=== PATIENT | male | born 1975 | race Two or more races ===

== ENCOUNTER 2020-07-01 15:10 | Outpatient (REF) | payer OTHER, SELFPAY | END 2020-07-01 15:11 | disposition home or self-care (01) | LOC: HO.LAB 15:10 | PROVIDERS: Visit Provider Internal Medicine | DX: Z20.822 Contact with and (suspected) exposure to COVID-19 (principal) | CPT/HCPCS: 36415; C9803; U0003 ==

== ENCOUNTER 2020-08-14 08:43 | Outpatient (REF) | payer OTHER, SELFPAY ==
--- NOTE | ~2020-08-14 | XR_ITS ---
EXAMINATION: XR SHOULDER, RIGHT CLINICAL INFORMATION: Superior glenoid lesion COMPARISON: x-rays of the right shoulder April 2018. MRI of the right shoulder June 2018. TECHNIQUE: AP external rotation, Grashey, scapular Y, and axillary views of the right shoulder. FINDINGS: There are some subtle lucency in the glenoid likely correspond cystic change noted on the prior MRI. Possible slight joint space narrowing. Mild arthrosis of the acromioclavicular joint unchanged. Remaining bones joints and soft tissues unremarkable XR/XR shoulder RT min 2V IMPRESSION: Mild arthrosis of the glenohumeral joint unchanged compared with MRI right shoulder June 2018. Mild arthrosis of the acromioclavicular joint unchanged
[2020-08-14 09:38] LABS: Hematocrit 41.9 % (42-52); Hemoglobin 13.6 g/dl (14.0-18.0); Mean Corpuscular HGB Conc 32.5 g/dl (31.0-36.0); Mean Corpuscular Hemoglobin 29.4 pg (27.0-33.0); Mean Corpuscular Volume 90.5 fL (80-98); Mean Platelet Volume 10.5 fL (9.4-12.4); Platelet Count 201 X10*3/uL (160-400); Red Blood Count 4.63 X10*6/uL (4.60-5.80); Red Cell Distribution Width 13.6 % (11.0-16.0)
[2020-08-14 09:49] LABS: Estimated Average Glucose 103 mg/dL; Hemoglobin A1c % 5.2 %
[2020-08-14 10:04] LABS: Alanine Aminotransferase 63 U/L (0-40); Albumin Level 4.1 g/dL (3.5-5.0); Alkaline Phosphatase 69 U/L (39-117); Anion Gap 14 (12-20); Aspartate Amino Transferase 35 U/L (5-37); Bilirubin Total 0.3 mg/dL (0.0-1.0); Blood Urea Nitrogen 21 mg/dL (9-16); Calcium 9.4 mg/dL (8.4-10.2); Carbon Dioxide 29 mmol/L (22-29); Chloride 107 mmol/L (96-108); Cholesterol 193 mg/dL; Estimated Glomerular Filt Rate > 60; Glucose Fasting 101 mg/dL (60-99); HDL Cholesterol 46 mg/dL; LDL Cholesterol Calculated 96 mg/dl; Potassium 5.7 mmol/L (3.3-5.1); Sodium 144 mmol/L (135-145); Total Protein 7.2 g/dL (6.5-8.0); Triglycerides 259 mg/dL
[2020-08-14 10:26] LABS: TSH reflex Free T4 5.41 uIU/mL (0.32-4.0)
== END 2020-08-14 08:44 | disposition home or self-care (01) ==
LOC: HO.LAB 08:43
PROVIDERS: PCP Internal Medicine; Visit Provider Physician Assistant
DX: Z13.220 Encounter for screening for lipoid disorders (principal); Z13.1 Encounter for screening for diabetes mellitus; I10 Essential (primary) hypertension; F33.1 Major depressive disorder, recurrent, moderate; S43.431D Superior glenoid labrum lesion of right shoulder, subsequent encounter
CPT/HCPCS: 36415; 73030; 80053; 80061; 83036; 84439; 84443; 85027

== ENCOUNTER → 2020-09-07 14:08 | Outpatient (BNVA) | payer OTHER, SELFPAY | PROVIDERS: Visit Provider Orthopaedic Surgery | DX: S43.431D Superior glenoid labrum lesion of right shoulder, subsequent encounter (principal) | CPT/HCPCS: 20610; 99202; J1100 ==

== ENCOUNTER 2022-05-02 09:38 | Outpatient (REF) | payer OTHER, SELFPAY ==
[2022-05-02 10:57] LABS: Hematocrit 45.8 % (42.0-52.0); Hemoglobin 15.1 g/dl (14.0-18.0); Mean Corpuscular Hemoglobin 30.1 pg (27.0-33.0); Mean Corpuscular Volume 91.4 fL (80.0-98.0); Mean Platelet Volume 10.7 fL (9.4-12.4); Platelet Count 242 X10*3/uL (160-400); Red Blood Count 5.01 X10*6/uL (4.60-5.80); Red Cell Distribution Width 13.2 % (11.0-16.0); White Blood Count 7.8 X10*3/uL (4.8-10.8)
[2022-05-02 12:03] LABS: Alanine Aminotransferase 76 U/L (0-40); Albumin Level 4.6 g/dL (3.5-5.0); Alkaline Phosphatase 73 U/L (39-117); Anion Gap 16 (12-20); Aspartate Amino Transferase 45 U/L (5-37); Bilirubin Total 0.8 mg/dL (0.0-1.0); Blood Urea Nitrogen 13 mg/dL (9-16); Carbon Dioxide 27 mmol/L (22-29); Chloride 101 mmol/L (96-108); Cholesterol 224 mg/dL; Estimated Glomerular Filt Rate > 60; Glucose Fasting 101 mg/dL (60-99); HDL Cholesterol 49 mg/dL; LDL Cholesterol Calculated 151 mg/dl; Potassium 3.6 mmol/L (3.3-5.1); Sodium 140 mmol/L (135-145); Total Protein 8.1 g/dL (6.5-8.0); Triglycerides 123 mg/dL
[2022-05-02 12:11] LABS: Prostate Specific Antigen Scr 0.28 ng/mL (<0.05-4.0); TSH reflex Free T4 6.86 uIU/mL (0.32-4.0)
[2022-05-02 14:07] LABS: Free T4 (Free Thyroxine) 1.09 ng/dL (0.71-1.85)
== END 2022-05-02 09:39 | disposition home or self-care (01) ==
LOC: HO.LAB 09:38
PROVIDERS: PCP Physician Assistant; Visit Provider Physician Assistant
DX: J45.20 Mild intermittent asthma, uncomplicated (principal); R79.89 Other specified abnormal findings of blood chemistry; Z13.220 Encounter for screening for lipoid disorders; Z13.1 Encounter for screening for diabetes mellitus; Z12.5 Encounter for screening for malignant neoplasm of prostate
CPT/HCPCS: 36415; 80053; 80061; 84153; 84439; 84443; 85027

== ENCOUNTER 2022-12-14 06:36 | Outpatient (REF) | payer OTHER, SELFPAY ==
[2022-12-14 08:51] LABS: Hematocrit 41.6 % (42.0-52.0); Hemoglobin 13.2 g/dl (14.0-18.0); Mean Corpuscular HGB Conc 31.7 g/dl (31.0-36.0); Mean Corpuscular Hemoglobin 30.6 pg (27.0-33.0); Mean Corpuscular Volume 96.3 fL (80.0-98.0); Mean Platelet Volume 10.6 fL (9.4-12.4); Platelet Count 207 X10*3/uL (160-400); Red Blood Count 4.32 X10*6/uL (4.60-5.80); Red Cell Distribution Width 13.5 % (11.0-16.0); White Blood Count 7.7 X10*3/uL (4.8-10.8)
[2022-12-14 09:32] LABS: Alanine Aminotransferase 46 U/L (0-40); Albumin Level 4.1 g/dL (3.5-5.0); Alkaline Phosphatase 72 U/L (39-117); Anion Gap 16 (12-20); Aspartate Amino Transferase 43 U/L (5-37); Bilirubin Total 0.6 mg/dL (0.0-1.0); Blood Urea Nitrogen 18 mg/dL (9-16); Calcium 9.7 mg/dL (8.4-10.2); Carbon Dioxide 24 mmol/L (22-29); Chloride 104 mmol/L (96-108); Cholesterol 198 mg/dL; Estimated Glomerular Filt Rate > 60; Glucose Fasting 96 mg/dL (60-99); HDL Cholesterol 48 mg/dL; LDL Cholesterol Calculated 112 mg/dl; Potassium 5.7 mmol/L (3.3-5.1); Sodium 138 mmol/L (135-145); Total Protein 7.4 g/dL (6.5-8.0); Triglycerides 192 mg/dL
[2022-12-14 12:32] LABS: Creatinine Urine 218.45 mg/dL; Microalbum/Creatinine Ratio Ur 11.9 ug/mg cr
== END 2022-12-14 06:37 | disposition home or self-care (01) ==
LOC: HO.LAB 06:36
PROVIDERS: PCP Physician Assistant; Visit Provider Physician Assistant
DX: E03.9 Hypothyroidism, unspecified (principal); I10 Essential (primary) hypertension
CPT/HCPCS: 36415; 80053; 80061; 82043; 84443; 85027

== ENCOUNTER 2022-12-28 09:44 | Outpatient (REF) | payer OTHER, SELFPAY ==
[2022-12-28 11:16] LABS: Potassium 4.8 mmol/L (3.3-5.1)
== END 2022-12-28 09:45 | disposition home or self-care (01) ==
LOC: HO.LAB 09:44
PROVIDERS: PCP Physician Assistant; Visit Provider Physician Assistant
DX: E87.5 Hyperkalemia (principal)
CPT/HCPCS: 36415; 84132

== ENCOUNTER 2023-05-11 13:46 | Outpatient (AMB) | payer OTHER, SELFPAY ==
[2023-05-11 13:55] VITALS: BP 120/86; PULSE 72; O2SAT 98; BMI 26.9
--- NOTE | 2023-05-11 13:55 | MHC.PC.OV ---
Vital Signs 05/11/23 13:55 Height 5 ft 9 in Weight 182 lb BMI 26.9 BP 120/86 Blood Pressure Location Lt brachial Position Sitting Pulse 72 Pulse Source Pulse Oximeter Pulse Oximetry (%) 98 Oxygen Delivery Method Room Air Intake Visit Reasons: f/u HTN Intake Note: Pt is here for HTN F/U. Csr Retail Required: No Accompanied by: Self / Same As Patient Allergies No Known Allergies [No Known Allergies*] Allergy (Verified 05/11/23 14:13) Medication List - Last Reconciled 05/11/23 by Jeff Gudino PA-C albuterol sulfate 90 mcg/actuation (Ventolin HFA) 2 puffs PO Q6H 30 days clonidine HCl 0.1 mg PO BID diclofenac sodium 75 mg PO BID PRN 30 days hydroxyzine HCl 25 mg PO BID PRN 14 days levothyroxine 25 mcg PO DAILY 90 days lisinopril 20 mg PO DAILY 90 days sertraline 50 mg PO DAILY Tobacco use date assessed: 11/01/22 Dental Screening Dental Screen Date: 05/11/23 Did you have a dental visit in the last 12 months?: Yes Did you have a dental problem in the last 6 months where you did not have access to dental care?: No Was dental information given to patient?: Patient has dentist HPI f/u HTN HPI Details Patient is a 47-year-old male here today for routine annual physical. ? Patient has a past medical history significant for opiate dependence, major depressive disorder, right shoulder tendinitis, allergic rhinitis and asthma. Concern--> .. HTN: blood pressure acceptable today.. Patient continues on lisinopril 20 mg with good effect on his blood pressure. .. Hypothyroid: Was found to have elevated TSH early this year. Was placed on levothyroxine and TSH has normalized. Over the last few months he has not been taking levothyroxine and feels fine. Will recheck TSH to assess the need for further levothyroxine He has lost significant amount of weight since last office visit. He reports this is intentional as he has been more physically active and going to the gym. Has been changing his diet and now feels much better. .. .. Opiate dependence: Currently on methadone (80 mg). Still occasional using street fentanyl though is trying his best to stay away from street drugs. . MDD/ PTSD : Has recently started on Zoloft and clonidine? for his anxiety and depression. He is speaking with a mental health therapist and seeing a psychiatrist to manage his mental health medication. He is trying to apply for SSI disability due to his mental health. [facility], [facility] Medical History PTSD (post-traumatic stress disorder) Surgical History No history of previous surgery Family History Mother No problems noted. Father AA (alcohol abuse) Other Substance use disorder Social History Housing: Homeless Alcohol intake: never Patient Tobacco Use Status: Former Tobacco user (quit seven years ago) e-Cigarette/Vaping Use: Never Used Second Hand Smoke Exposure: No Substance Use Type: Heroin service: No Current occupational status: unemployed Cognitive needs: No Hearing needs: No Vision needs: No Questionnaire Thrive Questionnaire Date Thrive assessed: 11/01/22 ARRON-7 AMB Questionnaire ARRON-7 Date ARRON - 7 assessed: 11/01/22 Source: Developed by Drs. Jorge Pedraza, Jina Henderson, Ryan Gonzalez and colleagues, with an educational maxim from [employer] [place]. Review of Systems Const Denies headache(s) Eyes Denies loss of vision ENT Denies vertigo, Denies dizziness, Denies headache(s) and Denies sore throat Card Denies chest pain, Denies leg edema and Denies lightheadedness Resp Denies cough, Denies hemoptysis and Denies wheezing GI Denies abdominal pain, Denies melena, Denies constipation, Denies diarrhea and Denies vomiting Denies dysuria, Denies urinary frequency and Denies urinary urgency Musc Denies arthralgias, Denies joint swelling, Denies numbness and Denies tingling Neuro Denies Abnormal speech present, Denies behavioral changes, Denies vertigo, Denies dizziness, Denies headache(s), Denies loss of vision, Denies memory loss, Denies numbness and Denies tingling Psych Denies anxiety, Denies behavioral changes, Denies depression, Denies memory loss and Denies panic attacks Toñito/Lymph Denies easy bleeding and Denies easy bruising Aller/Immun Denies wheezing Physical exam (Primary Care) Vital Signs: Last Vital Signs Pulse 72 05/11/23 13:55 BP 120/86 05/11/23 13:55 Pulse Ox 98 05/11/23 13:55 Oxygen Delivery Method Room Air 05/11/23 13:55 BMI result Body Mass Index 26.9 Tobacco/Smoking Status: Tobacco use Status Tobacco use date assessed 11/01/22 05/11/23 13:57 Patient Tobacco Use Status Former Tobacco user (quit 05/11/23 13:57 seven years ago) e-Cigarette/Vaping Use Never Used 05/11/23 13:57 Thrive Assessment: Date of Thrive Assessment Date Thrive assessed 11/01/22 05/11/23 13:57 Const General: healthy appearing, no acute distress, alert and awake Nutritional Appearance: well nourished Orientation/consciousness: oriented to person, oriented to place and oriented to time HENMT Ears: TM's normal bilaterally General nose exam: Normal nasal mucous membranes and turbinates present Eyes Conjunctivae: conjunctivae normal Sclerae: sclerae normal Pupils: Equal, round and reactive pupils present Neck Neck: Yes no lymphadenopathy and Yes no JVD Thyroid: Thyroid normal Carotids: no bruits Resp Effort & Inspection: normal respiratory effort and not tachypneic Auscultation: no crackles, no rales, no rhonchi and no wheezes Cardio Rate: regular rate Rhythm: regular rhythm Heart sounds: no murmurs and normal S1 and S2 GI Palpation (GI): Soft to palpation, nontender, no hepatomegaly and no splenomegaly Auscultation: normal bowel sounds Skin General skin exam: no rashes or lesions noted and dry skin Neuro General: oriented to person, oriented to place and oriented to time Cranial nerves: Yes Equal, round and reactive pupils present Speech: No Abnormal speech present Gait exam (Neuro): Normal gait present Motor exam (neuro): no tremor noted Extrem Right upper extremity: full ROM Left upper extremity: full ROM Right lower extremity: full ROM; no edema Left lower extremity: full ROM; no edema Psych Mental Status: mental status grossly normal Speech and movement: Normal speech and movement present Affect: normal affect Attitude: cooperative Thought process: Normal thought process present Office Procedures Flu Questionnaire Does the patient have a severe egg allergy?: No Does the patient have severe life threatening allergies?: No Does the patient have a fever or illness today?: No Has the patient ever had Guillain-[place] Syndrome?: No Has the patient ever had any past reaction to a flu shot?: No Immunizations flu vacc [id number] 6mos up(PF) 60 mcg(15 mcgx4)/0.5 mL IM syringe Performing Provider: Jeff Gudino PA-C [facility] Administered by: MAYA Schrader on 05/11/23 14:34 Dose Route Admin Location Dispensed Lot Number Expiration Date 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 Will continue lisinopril 20 mg and advised patient to continue monitoring blood pressure at home with goal blood pressure to be below 140/90 (2) Opiate dependence: Code(s): F11.20 - Opioid dependence, uncomplicated Qualifiers: Substance use status: uncomplicated Qualified Code(s): F11.20 - Opioid dependence, uncomplicated Plan: Patient continues on methadone through a local methadone clinic, continues on 80 mg. He does admit to still using occasional fentanyl. (3) MDD (major depressive disorder), recurrent episode: Code(s): F33.9 - Major depressive disorder, recurrent, unspecified Qualifiers: Major depression episode severity: moderate Qualified Code(s): F33.1 - Major depressive disorder, recurrent, moderate Plan: He is now speaking with a mental health therapist. Continues on Zoloft and clonidine. He feels his mental health as much better. (4) Asthma: Code(s): J45.909 - Unspecified asthma, uncomplicated Qualifiers: Asthma complication type: uncomplicated Asthma persistence: intermittent Asthma severity: mild Qualified Code(s): J45.20 - Mild intermittent asthma, uncomplicated Plan: Patient reports his asthma has been fairly well controlled with only p.r.n. use of albuterol inhaler. He denies any nighttime awakenings with asthma symptoms or recent asthma exacerbations. (5) Hypothyroid: Code(s): E03.9 - Hypothyroidism, unspecified Qualifiers: Hypothyroidism type: unspecified Qualified Code(s): E03.9 - Hypothyroidism, unspecified Plan: Was found to have an elevated TSH and was started on low-dose levothyroxine 25 mcg. Has stopped using this medication and most recent TSH has been stable. Will recheck TSH to assure normal not on medication if elevated will reconsider starting levothyroxine. (6) Superior glenoid labrum lesion of right shoulder: Code(s): S43.431A - Superior glenoid labrum lesion of right shoulder, initial encounter Qualifiers: Encounter type: subsequent encounter Qualified Code(s): S43.431D - Superior glenoid labrum lesion of right shoulder, subsequent encounter Plan: Has follow-up with orthopedics and received cortisone injections which has really helped his right shoulder pain. He does use diclofenac as well. (7) PTSD (post-traumatic stress disorder): Code(s): F43.10 - Post-traumatic stress disorder, unspecified Plan: Continues to follow a mental health therapist and a psychiatrist. Continues on clonidine, hydroxyzine and Zoloft which have been helpful in controlling his mental health. Still does have anxiety he deals with on a daily basis. Orders: Orders Prostate Specific Antigen Scr Today I10 - Essential (primary) hypertension, Z12.5 - Encounter for screening for malignant neoplasm of prostate Complete Blood Count no Diff Today I10 - Essential (primary) hypertension Microalbumin, Random (w Creat) Today I10 - Essential (primary) hypertension Influenza [id number] Immunization Today Z23 - Encounter for immunization TSH reflex Free T4 Today E03.9 - Hypothyroidism, unspecified Comprehensive [place]. Panel Fast Today I10 - Essential (primary) hypertension Medications: Changed From hydroxyzine HCl 25 mg PO BID 14 days PRN 28 tabs 0RF anxiety F43.10 - Post-traumatic stress disorder, unspecified To hydroxyzine HCl 25 mg PO BID 30 days PRN 60 tabs 2RF anxiety F43.10 - Post-traumatic stress disorder, unspecified Refilled lisinopril 20 mg PO DAILY 90 days 90 tabs 1RF I10 - Essential (primary) hypertension On Hold levothyroxine Hold Comment: Doctor's Order 25 mcg PO DAILY 90 days 90 tabs 1RF E03.9 - Hypothyroidism, unspecified Coding Level of Care Code Est Pt Level 4 (68543) Diagnoses Primary hypertension I10 Hypertension type: primary hypertension Uncomplicated opioid dependence F11.20 Substance use status: uncomplicated Moderate episode of recurrent major depressive disorder F33.1 Major depression episode severity: moderate Mild intermittent asthma without complication J45.20 Asthma complication type: uncomplicated Asthma persistence: intermittent Asthma severity: mild Hypothyroidism, unspecified type E03.9 Hypothyroidism type: unspecified Superior glenoid labrum lesion of right shoulder, subsequent encounter S43.431D Encounter type: subsequent encounter PTSD (post-traumatic stress disorder) F43.10
== END 2023-05-11 14:31 | disposition home or self-care (01) ==
PROVIDERS: PCP Physician Assistant; Visit Provider Physician Assistant
DX: I10 Essential (primary) hypertension (principal); F11.20 Opioid dependence, uncomplicated; F33.1 Major depressive disorder, recurrent, moderate; J45.20 Mild intermittent asthma, uncomplicated; E03.9 Hypothyroidism, unspecified; S43.431D Superior glenoid labrum lesion of right shoulder, subsequent encounter; F43.10 Post-traumatic stress disorder, unspecified; Z23 Encounter for immunization
CPT/HCPCS: 90471; 90686; 99214

== ENCOUNTER 2023-09-05 07:30 | Outpatient (REF) | payer OTHER, SELFPAY ==
[2023-09-05 07:56] LABS: Hemoglobin 14.5 g/dl (14.0-18.0); Mean Corpuscular Hemoglobin 30.1 pg (27.0-33.0); Mean Corpuscular Volume 91.5 fL (80.0-98.0); Mean Platelet Volume 10.2 fL (9.4-12.4); Platelet Count 176 X10*3/uL (160-400); Red Blood Count 4.81 X10*6/uL (4.60-5.80); Red Cell Distribution Width 12.9 % (11.0-16.0); White Blood Count 7.1 X10*3/uL (4.8-10.8)
[2023-09-05 08:35] LABS: Alanine Aminotransferase 38 U/L (0-40); Alkaline Phosphatase 60 U/L (39-117); Anion Gap 12 (12-20); Aspartate Amino Transferase 28 U/L (5-37); Bilirubin Total 0.4 mg/dL (0.0-1.0); Blood Urea Nitrogen 19 mg/dL (9-16); Calcium 10.2 mg/dL (8.4-10.2); Carbon Dioxide 29 mmol/L (22-29); Chloride 105 mmol/L (96-108); Estimated Glomerular Filt Rate > 60; Glucose Fasting 109 mg/dL (60-99); Potassium 5.1 mmol/L (3.3-5.1); Sodium 141 mmol/L (135-145); Total Protein 7.6 g/dL (6.5-8.0)
[2023-09-05 08:41] LABS: Prostate Specific Antigen Scr 0.25 ng/mL (<0.05-4.0)
[2023-09-05 08:50] LABS: TSH reflex Free T4 5.27 uIU/mL (0.32-4.0)
[2023-09-05 09:32] LABS: Free T4 (Free Thyroxine) 0.93 ng/dL (0.71-1.85)
[2023-09-05 10:01] LABS: Creatinine Urine 124.34 mg/dL; Microalbum/Creatinine Ratio Ur 5.6 ug/mg cr (<30)
== END 2023-09-05 07:31 | disposition home or self-care (01) ==
LOC: HO.LAB 07:30
PROVIDERS: PCP Physician Assistant; Visit Provider Physician Assistant
DX: I10 Essential (primary) hypertension (principal); E03.9 Hypothyroidism, unspecified; Z12.5 Encounter for screening for malignant neoplasm of prostate
CPT/HCPCS: 36415; 80053; 82043; 82570; 84153; 84439; 84443; 85027

== ENCOUNTER 2024-01-23 14:33 | Outpatient (AMB) | payer OTHER, SELFPAY ==
--- NOTE | 2024-01-23 14:39 | MHC.PC.OV ---
Vital Signs 01/23/24 14:49 Height 5 ft 9 in Weight 211 lb 8 oz BMI 31.2 BP 124/92 H Blood Pressure Location Lt brachial Position Sitting Pulse 63 Pulse Source Pulse Oximeter Pulse Oximetry (%) 98 Oxygen Delivery Method Room Air Intake Visit Reasons: PE Intake Note: Patient is here today for a physical. Clinic Mgr Required: No Accompanied by: Self / Same As Patient Allergies No Known Allergies [No Known Allergies*] Allergy (Verified 01/23/24 15:06) Medication List - Last Reconciled 01/23/24 by Jeff Gudino PA-C albuterol sulfate 90 mcg/actuation (Ventolin HFA) 2 puffs PO Q6H 30 days clonidine HCl 0.2 mg PO DAILY clonidine HCl 0.1 mg PO BID diclofenac sodium 75 mg PO BID PRN 30 days hydroxyzine HCl 25 mg PO BID PRN 30 days levothyroxine 25 mcg PO DAILY 90 days lisinopril 20 mg PO DAILY 90 days naloxone 4 mg/actuation sprays intranasal risperidone 0.5 mg PO DAILY sertraline 100 mg PO DAILY Tobacco use date assessed: 01/23/24 Dental Screening Dental Screen Date: 01/23/24 Did you have a dental visit in the last 12 months?: No Did you have a dental problem in the last 6 months where you did not have access to dental care?: Yes Was dental information given to patient?: Patient has dentist HPI PE HPI Details Patient is a 48-year-old male here today for routine annual physical. ? Patient has a past medical history significant for opiate dependence, major depressive disorder, right shoulder tendinitis, allergic rhinitis and asthma. Concern--> does noted weight gain since last office visit. He reports he has been a bit depressed and more sedentary. He admits to dietary indiscretion .. HTN: blood pressure acceptable today.. Patient continues on lisinopril 20 mg with good effect on his blood pressure. .. Hypothyroid: Was found to have elevated TSH early this year. Was placed on levothyroxine and TSH has normalized. Over the last few months he has not been taking levothyroxine and feels fine. Will recheck TSH to assess the need for further levothyroxine .. .. Opiate dependence: Currently on methadone (80 mg). Still occasional using street fentanyl though is trying his best to stay away from street drugs. . MDD/ PTSD : Has recently started on Zoloft and clonidine? for his anxiety and depression. He is speaking with a mental health therapist and seeing a psychiatrist to manage his mental health medication. He is trying to apply for SSI disability due to his mental health. Colon cancer screening: He is willing to do colonoscopy Vaccines: Up-to-date with tetanus vaccine, flu vaccine, declines COVID vaccine, needs to pneumonia vaccine [facility] Medical History PTSD (post-traumatic stress disorder) Surgical History No history of previous surgery Family History Mother No problems noted. Father AA (alcohol abuse) Other Substance use disorder Social History Housing: Homeless Alcohol intake: never Patient Tobacco Use Status: Former Tobacco user (quit seven years ago) e-Cigarette/Vaping Use: Never Used Second Hand Smoke Exposure: No Substance Use Type: Heroin service: No Current occupational status: unemployed Cognitive needs: No Hearing needs: No Vision needs: No Questionnaire PHQ-9 Over the last 2 weeks, how often have you been bothered by any of the following problems? 1. Little interest or pleasure in doing things: not at all 2. Feeling down, depressed, or hopeless: not at all 3. Trouble falling or staying asleep, or sleeping too much: not at all 4. Feeling tired or having little energy: not at all 5. Poor appetite or overeating: not at all 6. Feeling bad about yourself - or that you are a failure or have let yourself or your family down: not at all 7. Trouble concentrating on things, such as reading the newspaper or watching television: not at all 8. Moving or speaking so slowly that other people could have noticed. Or the opposite - being so fidgety or restless that you have been moving around a lot more than usual: not at all 9. Thoughts that you would be better off or of hurting yourself in some way: not at all Total score: 0 Depression Screening Interpretation: Negative Depression Screening Done: Yes 84141 - PHQ-9 Billing: Yes Source: Developed by Drs. Jorge Pedraza, Ryan iLnares and colleagues, with an educational maxim from [employer]. Thrive Questionnaire Date Thrive assessed: 01/23/24 I am a: Patient What is your living situation today?: I have a steady place to live Within the past 12 months, did the food you bought not last and you didn't have the money to get more?: Never true Within the past 12 months, did you worry whether your food would run out before you got money to buy more?: Never true Do you have trouble paying for medicines?: No Do you have trouble getting transportation to medical appointments?: No Do you have trouble paying your heating and electricity bill?: No Do you have trouble taking care of your child, family member or friend?: No Do you have trouble with day-to-day activities such as bathing, preparing meals, shopping, managing finances, etc.?: No Are you currently unemployed and looking for a job?: No Are you interested in more education?: No Please select the resources that you would like help with: None Currently or been in a relationship where the following occur: No concerns reported THRIVE Score: 0 AUDIT C Alcohol Use Questionnaire (AUDIT-C) 1. How often do you have a drink containing alcohol?: Never 3. How often do you have six or more drinks on one occasion?: Never Total Score: 0 ARRON-7 AMB Questionnaire ARRON-7 Date ARRON - 7 assessed: 01/23/24 Feeling nervous, anxious, or on edge: 0 = Not at all Not being able to stop or control worryin = Not at all Worrying too much about different things: 0 = Not at all Trouble relaxin = Not at all Being so restless that it is hard to sit still: 0 = Not at all Becoming easily annoyed or irritable: 0 = Not at all Feeling afraid as if something awful might happen: 0 = Not at all Total ARRON-7 score (0-4 normal; 5-9 mild; 10-14 moderate; 15-21 severe): 0 Source: Developed by Jina Gomez Kurt Kroenke and colleagues, with an educational maxim from [employer]. ARRON-7 Assessment Billing ARRON-7 Assessment Tool: ARRON-7 Assessment 60921 ACT Questionnaire In the past 4 weeks, how much of the time did your asthma keep you from getting as much done at work, school or at home?: None of the time During the past 4 weeks, how often have you had shortness of breath?: Not at all During the past 4 weeks, how often did your asthma symptoms wake you up at night or earlier than usual in the morning?: Not at all During the past 4 weeks, how often have you had to use your rescue inhaler or nebulizer medication?: Not at all How would you rate your asthma control during the past 4 weeks?: Completely controlled ACT Interpretation: Negative Score: 25 Review of Systems Const Denies body aches, Denies chills, Denies excessive sweating, Denies fatigue, Denies fever(s) and Denies headache(s) Eyes Denies blurry vision ENT Denies dysphagia, Denies vertigo, Denies dizziness, Denies headache(s), Denies hearing loss and Denies tinnitus Card Denies chest pain, Denies chest pain with activity, Denies syncope, Denies irregular heart rhythm and Denies dyspnea Resp Denies chest congestion, Denies cough, Denies hemoptysis, Denies dyspnea and Denies wheezing GI Denies abdominal pain, Denies melena, Denies hematochezia, Denies coffee ground emesis, Denies dysphagia, Denies diarrhea, Denies nausea and Denies vomiting Denies difficulty urinating, Denies dysuria, Denies urinary frequency, Denies urinary hesitancy and Denies urinary urgency Musc Denies arthralgias, Denies limited range of motion, Denies muscle cramps and Denies muscle weakness Skin/Breast Denies rash and Denies skin ulcer Neuro Denies Abnormal speech present, Denies confusion, Denies vertigo, Denies dizziness, Denies syncope, Denies headache(s), Denies memory loss and Denies seizure-like activity Psych Denies anxiety, Denies confusion, Denies depression, Denies memory loss, Denies panic attacks and Denies paranoia Endo Denies excessive sweating, Denies fatigue, Denies flushing, Denies polydipsia and Denies polyuria Aller/Immun Denies wheezing Physical exam (Primary Care) Vital Signs: Last Vital Signs Pulse 63 08/20/24 14:49 BP 124/92 H 01/23/24 14:49 Pulse Ox 98 01/23/24 14:49 Oxygen Delivery Method Room Air 01/23/24 14:49 BMI result Body Mass Index 31.2 Tobacco/Smoking Status: Tobacco use Status Tobacco use date assessed 01/23/24 01/23/24 14:56 Patient Tobacco Use Status Former Tobacco user (quit 01/23/24 14:40 seven years ago) e-Cigarette/Vaping Use Never Used 01/23/24 14:40 PHQ-9: PHQ-9 Score PHQ-9: Total score 0 01/23/24 15:26 Depression Screening Interpretation: Negative Thrive Assessment: Date of Thrive Assessment Date Thrive assessed 01/23/24 01/23/24 14:57 Currently or been in a relationship where the following occur: No concerns reported Const General: cooperative, comfortable, no acute distress, alert and awake; No confusion Orientation/consciousness: oriented to person, oriented to place, patient oriented x3 and No confusion HENMT Head: Yes normocephalic Ears: external ears normal and TM's normal bilaterally Face and sinus: No sinus tenderness Mouth: Normal oral and palatal mucosa present and tongue normal Teeth and gingiva: dentition normal and gingiva normal Throat: Yes posterior oropharynx normal, Yes tonsils normal and Yes uvula midline Eyes Conjunctivae: conjunctivae normal Sclerae: sclerae normal Pupils: Equal, round and reactive pupils present EOM: EOMs intact bilaterally Direct Ophthalmoscopy: No no photophobia Neck Neck: Yes no lymphadenopathy, No tender and Yes no JVD Thyroid: Thyroid normal Carotids: no bruits Chest Chest palpation & inspection: no tenderness Resp Effort & Inspection: normal respiratory effort, no audible wheezes, not labored and no stridor Auscultation: no crackles, no rales, no rhonchi and no wheezes Cardio Jugular venous distension: no JVD Rate: regular rate, not bradycardic and not tachycardic Rhythm: regular rhythm Bruits: no carotid bruits Peripheral pulses: Peripheral pulses 2+ throughout GI Inspection: Yes normal to inspection, No abdominal wall ecchymosis and No visible herniation Palpation (GI): Soft to palpation, nontender, no guarding, not rigid and No hepatosplenomegaly present Auscultation: normoactive bowel sounds General: Yes no CVA tenderness Back/Spine/Pelvis Back: no CVA tenderness and No back tenderness Cervical Spine: cervical ROM normal Thoracic/Lumbar Spine: thoracic and lumbar spine normal to inspection, straight leg raise negative bilaterally, No thoraco-lumbar ROM limited and No lumbar spinal tenderness Skin Lesions: no lesions Rashes: no rashes Wounds: no wounds Neuro General: oriented to person, oriented to place, patient oriented x3, CN's II-XI intact bilaterally and No confusion Cranial nerves: Yes Equal, round and reactive pupils present and Yes Normal accommodation reflex present Cognition (Neuro): normal cognition Speech: No Abnormal speech present Gait exam (Neuro): Normal gait present Motor exam (neuro): 5/5 motor strength present throughout Extrem Right upper extremity: full ROM; no cyanosis Left upper extremity: full ROM; no cyanosis Right lower extremity: no edema Left lower extremity: no edema Psych Appearance: grossly normal Mental Status: mental status grossly normal Affect: normal affect Attitude: cooperative Thought process: Normal thought process present Immunizations pneumoc 20-cecilia conj-dip cr(PF) 0.5 mL IM syringe Performing Provider: Jeff Gudino PA-C Performing Location: [facility] Administered by: MAYA Schrader on 01/23/24 15:27 Dose Route Admin Location Dispensed Lot Number Expiration Date NDC Pharmacoepidemiologist 0.5 mL IM Left Deltoid 0.5 mL [id number] 11/03/24 2318-6805-36 [employer] VIS Given Date VIS Provided VIS Publication Date 01/23/24 Single Vaccine 21 Eligibility Eligibility Date Funding Source Not [facility] Eligible 01/23/24 Private Assessment and Plan Assessment & Plan (1) Annual physical exam: Code(s): Z00.00 - Encounter for general adult medical examination without abnormal findings (2) HTN (hypertension): Code(s): I10 - Essential (primary) hypertension Qualifiers: Hypertension type: primary hypertension Qualified Code(s): I10 - Essential (primary) hypertension Plan: Patient's blood pressure much better controlled with lisinopril 20 mg. Will continue lisinopril 20 mg and advised patient to continue monitoring blood pressure at home with goal blood pressure to be below 140/90 (3) Opiate dependence: Code(s): F11.20 - Opioid dependence, uncomplicated Qualifiers: Substance use status: uncomplicated Qualified Code(s): F11.20 - Opioid dependence, uncomplicated Plan: Patient continues on methadone through a local methadone clinic, continues on 80 mg. He does admit to still using occasional fentanyl. (4) MDD (major depressive disorder), recurrent episode: Code(s): F33.9 - Major depressive disorder, recurrent, unspecified Qualifiers: Major depression episode severity: moderate Qualified Code(s): F33.1 - Major depressive disorder, recurrent, moderate Plan: Has a counselor at the methadone clinic. Does report still suffering with depression which causes him to be sedentary thus has gained weight. Continues on Zoloft and clonidine. He feels his mental health as much better. (5) Asthma: Code(s): J45.909 - Unspecified asthma, uncomplicated Qualifiers: Asthma complication type: uncomplicated Asthma persistence: intermittent Asthma severity: mild Qualified Code(s): J45.20 - Mild intermittent asthma, uncomplicated Plan: Patient reports his asthma has been fairly well controlled with only p.r.n. use of albuterol inhaler. He denies any nighttime awakenings with asthma symptoms or recent asthma exacerbations. Will give patient pneumonia vaccine (6) Hypothyroid: Code(s): E03.9 - Hypothyroidism, unspecified Qualifiers: Hypothyroidism type: unspecified Qualified Code(s): E03.9 - Hypothyroidism, unspecified Plan: Has not been taking levothyroxine. Has noted significant weight gain since last office visit. Also reports some increased depression over the last few months.. Advised to restart levothyroxine 25 mcg on an empty stomach in the morning. (7) PTSD (post-traumatic stress disorder): Code(s): F43.10 - Post-traumatic stress disorder, unspecified Plan: Continues on clonidine, hydroxyzine and Zoloft which have been helpful in controlling his mental health. Still does have anxiety he deals with on a daily basis. (8) Impaired glucose metabolism: Code(s): R73.09 - Other abnormal glucose Plan: Most recent fasting blood sugar slightly elevated. He does report some dietary indiscretion as of late due to his depression.. Will check an A1c (9) Colon cancer screening: Code(s): Z12.11 - Encounter for screening for malignant neoplasm of colon Plan: Is considering a colonoscopy, declines Cologuard at this time Orders: Orders Comprehensive [place]. Panel Fast 01/23/24 Z13.1 - Encounter for screening for diabetes mellitus Hemoglobin A1c 01/23/24 R73.09 - Other abnormal glucose Prostate Specific Antigen Scr 01/23/24 I10 - Essential (primary) hypertension, Z12.5 - Encounter for screening for malignant neoplasm of prostate Microalbumin, Random (w Creat) 01/23/24 I10 - Essential (primary) hypertension Pneumococcal 20 Immunization 01/23/24 I10 - Essential (primary) hypertension, Z23 - Encounter for immunization Medications: Refilled albuterol sulfate 90 mcg/actuation (Ventolin HFA) 2 puffs PO Q6H 8.5 grams 3RF 30 days J45.20 - Mild intermittent asthma, uncomplicated hydroxyzine HCl 25 mg PO BID PRN 60 tabs 2RF anxiety 30 days F43.10 - Post-traumatic stress disorder, unspecified lisinopril 20 mg PO DAILY 90 tabs 1RF 90 days I10 - Essential (primary) hypertension Resumed levothyroxine 25 mcg PO DAILY 90 tabs 1RF 90 days E03.9 - Hypothyroidism, unspecified levothyroxine 25 mcg PO DAILY 90 days 90 tabs 1RF E03.9 - Hypothyroidism, unspecified Patient Instructions: Goal: Blood pressure to be below 140/90. Barriers: Adherence to physical activity and healthy eating habits Coding Level of Care Code Est Pt Prev Care 40-64y(11086) Diagnoses Annual physical exam Z00.00 Primary hypertension I10 Hypertension type: primary hypertension Uncomplicated opioid dependence F11.20 Substance use status: uncomplicated Moderate episode of recurrent major depressive disorder F33.1 Major depression episode severity: moderate Mild intermittent asthma without complication J45.20 Asthma complication type: uncomplicated Asthma persistence: intermittent Asthma severity: mild Hypothyroidism, unspecified type E03.9 Hypothyroidism type: unspecified PTSD (post-traumatic stress disorder) F43.10 Impaired glucose metabolism R73.09 Colon cancer screening Z12.11 Additional Codes ARRON-7 Assessment Billing - ARRON-7 Assessment Tool: ARRON-7 Assessment 35565 ([id number])
[2024-01-23 14:49] VITALS: BP 124/92; PULSE 63; O2SAT 98; BMI 31.2
== END 2024-01-23 15:29 | disposition home or self-care (01) ==
PROVIDERS: PCP Physician Assistant; Visit Provider Physician Assistant
DX: Z23 Encounter for immunization (principal)
CPT/HCPCS: 90471; 90677; 99396

== ENCOUNTER 2024-05-15 13:09 | Outpatient (AMB) | payer OTHER, SELFPAY ==
--- NOTE | 2024-05-15 13:19 | AM.OFFVISNUR ---
Intake Visit Reasons: TB Implant Allergies No Known Allergies [No Known Allergies*] Allergy (Verified 01/23/24 15:06) Office Meds tuberculin PPD 5 tub. unit/0.1 mL intradermal injection solution Performing Provider: Jeff Gudino PA-C Performing Location: [facility] [place] Administered by: Elo Rosenberg LPN on 05/15/24 13:19 Dose Route Admin Location Dispensed Lot Number Expiration Date [facility] [employer] L[employer] 0.1 mL intradermal left forearm 0.1 mL [id number] 11/02/26 22446-560-50 [employer] Assessment & Plan Assessment & Plan Orders: Orders AMB PPD Planted Today Z11.1 - Encounter for screening for respiratory tuberculosis Medications: New tuberculin PPD 0.1 mL intradermal ONCE 0.1 mL 0RF Z11.1 - Encounter for screening for respiratory tuberculosis
== END 2024-05-15 13:21 | disposition home or self-care (01) ==
PROVIDERS: PCP Physician Assistant; Visit Provider Physician Assistant
DX: Z11.1 Encounter for screening for respiratory tuberculosis (principal)

== ENCOUNTER → 2024-05-15 13:09 | Outpatient (BNVA) | payer OTHER, SELFPAY | PROVIDERS: PCP Physician Assistant; Visit Provider Physician Assistant | DX: Z11.1 Encounter for screening for respiratory tuberculosis (principal) | CPT/HCPCS: 86580 ==

== ENCOUNTER → 2024-05-17 13:37 | Outpatient (BNVA) | payer OTHER, SELFPAY | PROVIDERS: PCP Physician Assistant; Visit Provider Physician Assistant ==

== ENCOUNTER 2025-05-07 12:05 | Outpatient (AMB) | payer OTHER, SELFPAY ==
--- NOTE | 2025-05-07 12:08 | MHC.OFFWIV ---
Intake Vital Signs 05/07/25 12:13 Height 5 ft 9.5 in Weight 240 lb BMI 34.9 BP 172/79 H Blood Pressure Location Lt brachial Position Sitting Pulse 86 Pulse Source Pulse Oximeter Temp 98 F Temp Source Oral Pulse Oximetry (%) 96 Oxygen Delivery Method Room Air Intake Visit Reasons: EP- ? Sinus Infection Intake Note: Patient complains of nasal block, chest congestion, sore throat and productive cough for around a month. Patient Tobacco Use Status: Former Tobacco user Allergies No Known Allergies (No Known Allergies*) Allergy (Verified 05/07/25 12:20) Do you need a note to return to daycare/school/sports/work: No HPI HPI Comments History of Present Illness Details History - The patient is a 49 year old individual presenting with respiratory symptoms. - The patient has a history of hypertension and is prescribed lisinopril, but was unsure if the medication was taken this morning. - The patient also has clonidine 0.1 mg and 0.2 mg at home but has not been taking it. - The patient denies any headaches or dizziness. - The patient has a history of asthma and reports feeling short of breath for more than a month. - Symptoms include nasal fullness, especially at night, as well as itchy ears and throat. - The patient has a Ventolin inhaler at home which he hasn't used and denies any fevers. - Hasn't used any OTC meds Review of Systems - Constitutional: Denies fevers. - HEENT: Reports itchy ears, itchy throat, and nasal fullness which is worse at night. - Respiratory: Reports shortness of breath for over a month. - Neurological: Denies headaches or dizziness. All systems reviewed and are unremarkable except as noted in HPI Physical Exam General: Cooperative, healthy appearing, comfortable and no acute distress Orientation/consciousness: Patient oriented x3 Limitations: No limitations Head: Normal to inspection Ears: Hearing grossly normal bilaterally, external ears normal, EAC's normal bilaterally and TM's normal bilaterally Nose: Normal external nose present, Normal nares present and No nasal discharge present Face and sinus: Normal facial exam and sinuses nontender Mouth: Normal oral and palatal mucosa present and moist mucous membranes Throat: tonsils normal, no exudates, uvula midline, posterior oropharynx erythema Eyes: Appearance normal, both eyes and all related structures Neck: Normal visual inspection, full ROM Respiratory: Inspiratory and expiratory wheezes throughout all lung mckee. Normal respiratory effort, able to speak in complete sentences, not actively coughing, no respiratory distress, not tachypneic, no tripod positioning and no use of accessory muscles Cardiovascular: Regular rate and rhythm. Normal S1 and S2 Skin: No rashes or lesions noted Neuro: Patient oriented x3 Extremities: Normal to inspection and Yes no clubbing, cyanosis or edema [facility] Medical History PTSD (post-traumatic stress disorder) Surgical History No history of previous surgery Family History Mother No problems noted. Father AA (alcohol abuse) Other Substance use disorder Social History Housing: Homeless Alcohol intake: never Patient Tobacco Use Status: Former Tobacco user e-Cigarette/Vaping Use: Never Used Second Hand Smoke Exposure: No Substance Use Type: Heroin service: No Current occupational status: unemployed Cognitive needs: No Hearing needs: No Vision needs: No Assessment & Plan Assessment & Plan (1) Elevated blood pressure reading with diagnosis of hypertension: Code(s): I10 - Essential (primary) hypertension Plan: Patient was informed and verbally consented to the use of an ambient scribe for clinic note documentation during this visit. - The patient was educated about the increased risk of stroke associated with uncontrolled and elevated blood pressures. - Recommended to restart clonidine at a dose of 0.1 mg daily. - If systolic blood pressure does not decrease to less than 140 mmHg ATC, the patient was advised to increase the clonidine dose to twice daily which is likely how he will need to take it. - Advised to return next week for a follow-up visit to check blood pressure and review what he is taking for clonidine dose. (2) Asthmatic bronchitis with exacerbation: Code(s): J45.901 - Unspecified asthma with (acute) exacerbation Qualifiers: Asthma severity: mild Asthma persistence: intermittent Qualified Code(s): J45.21 - Mild intermittent asthma with (acute) exacerbation Plan: - VSS, pt well appearing and PE remarkable for insp/exp wheezes. - Reminded to use the Ventolin inhaler every 4 to 6 hours as needed for shortness of breath. - A prescription for prednisone 40 mg to be taken for 5 days was sent to the pharmacy. - A prescription for a Z-Jignesh was sent to the pharmacy as symptoms have not improved in 30 days. - Sent RX for daily allergy pill and recommended other OTC meds to treat symptoms. - Advised rest and hydration. Medications: New prednisone 40 mg (2 x 20 mg) PO DAILY 10 tabs 0RF azithromycin For 250 mg dose pack: take 500 mg today (day 1), then 250 mg for 4 days (days 2-5) PO 6 tabs 0RF levocetirizine 5 mg PO BEDTIME 30 tabs 0RF 30 days Discontinued hydroxyzine HCl Discontinued Reason: Patient Completed Course 25 mg PO BID PRN 60 tabs 2RF anxiety 30 days F43.10 - Post-traumatic stress disorder, unspecified Coding Level of Care Code Est Pt Level 4 (51225) Diagnoses Elevated blood pressure reading with diagnosis of hypertension I10 Mild intermittent asthmatic bronchitis with acute exacerbation J45.21 Asthma severity: mild Asthma persistence: intermittent
[2025-05-07 12:13] VITALS: BP 172/79; PULSE 86; TEMP 36.6; O2SAT 96; BMI 34.9
--- OUTSIDE RECORDS SUMMARY | 2025-05-07 14:26 | XMS_ITS | Clinical Summary ---
Author Organization [employer] 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 Name Role Phone Unavailable Primary Care Provider Unavailabl e Social History Tobacco Use Types Packs/Day Years Used Date Smoking Tobacco: Never Assessed Sex and Gender Information Value Date Recorded Sex Assigned at Not on file Legal Sex Male 6:15 AM EST Gender Identity Not on file Sexual Orientation Not on file Plan of Treatment Health Maintenance Due Date Last Done Comments DTaP,Tdap,and Td Vaccines (1 - Tdap) 1992 Hepatitis B Vaccines (1 of 3 - 19+ 3-dose series) 1992 Pneumococcal Vaccine: 50+ Ye ars (1 of 1 - PCV) 2023 Zoster Vaccines (1 of 2) 2023 Depression Screening 06/05/2024 COVID-19 Vaccine (1 - 2024-2 6 season) 2025 Influenza Vaccine (#1) 2025 RSV Immunization Adult Patie nts (1 - 1-dose 75+ series) 2048 HIB Vaccines Aged Out No longer eligi ble based on patient's age to complete this topic HPV Vaccines Aged Out No longer eligi ble based on patient's age to complete this topic Hepatitis A Vaccines Aged Out No long er eligible based on patient's age to complete this topic IPV Vaccines Aged Out No longer eligi ble based on patient's age to complete this topic MMR Vaccines Aged Out No longer eligi ble based on patient's age to complete this topic Meningococcal ACWY Vaccine Aged Out N o longer eligible based on patient's age to complete this topic Meningococcal B Vaccine Aged Out No l onger eligible based on patient's age to complete this topic RSV Immunization Patients Un imelda 20 months Aged Out No longer eligible b ased on patient's age to complete this topic Varicella Vaccines Aged Out No longer eligible based on patient's age to complete this topic
== END 2025-05-07 14:14 | disposition home or self-care (01) ==
PROVIDERS: PCP Physician Assistant; Visit Provider Physician Assistant
DX: I10 Essential (primary) hypertension (principal); J45.21 Mild intermittent asthma with (acute) exacerbation

== ENCOUNTER → 2025-05-07 12:05 | Outpatient (BNVA) | payer OTHER, SELFPAY | PROVIDERS: PCP Physician Assistant; Visit Provider Physician Assistant | DX: I10 Essential (primary) hypertension (principal); J45.21 Mild intermittent asthma with (acute) exacerbation | CPT/HCPCS: 99212 ==